=== PATIENT | male | born 1965 | race Caucasian/White ===

== ENCOUNTER 2022-05-09 14:48 | Emergency (ER) | payer MEDICARE ==
[2022-05-09] MEDS ORDERED: Meclizine HCl 25 MG TAB ONE (15:59)
[2022-05-09] MEDS ORDERED: Metoprolol Tartrate 5 MG/5 ML VIAL ONE ×3 (15:59→17:43)
[2022-05-09 16:02] LABS: #Basophils 0.1 thou/uL (0.0-0.2); #Eosinphils 0.1 thou/uL (0.0-0.7); #Lymphocytes 2.1 thou/uL (1.20-3.40); #Monocytes 0.7 thou/uL (0.11-0.59); #Neutrophils 6.1 thou/uL (1.40-6.50); %Basophils 0.8 % (0.0-1.0); %Eosinophils 1.6 % (0.0-10.0); %Monocytes 7.4 % (0.0-10.0); %Neutrophils 67.3 % (42.0-75.0); Hemoglobin 16.4 g/dL (14.0-18.0); Mean Corpuscular HGB CONC 30.4 g/dL (32.0-36.0); Mean Corpuscular Hemoglobin 24.5 pg (27.0-31.0); Mean Corpuscular Volume 80.5 fl (78.0-98.0); Mean Platelet Volume 6.9 fL (7.4-10.4); Platelet Count 327 10x3/uL (130-400); Red Blood Cell (RBC) Count 6.71 mill/uL (4.70-6.10); White Blood Cell (WBC) Count 9.1 10x3/uL (4.8-10.8)
[2022-05-09 16:05] LABS: Prothrombin Time 13.3 sec (12.0-14.7)
[2022-05-09 16:06] LABS: PTT 26.8 sec (22.9-36.1)
[2022-05-09 16:15] LABS: ALT (SGPT) 18 U/L (8-55); AST (SGOT) 20 U/L (5-34); Albumin 4.2 g/dL (3.5-5.0); Alkaline Phosphatase 102 U/L (40-110); Anion Gap 18 mmol/L (10-20); BUN (Urea Nitrogen) 13 mg/dL (8.4-25.7); Calc. Creatinine Clearance 0 mL/min (70-130); Calcium 10.8 mg/dL (7.8-10.44); Carbon Dioxide 24 mmol/L (22-29); Chloride 101 mmol/L (98-107); Estimated GFR 71; Globulin 4.1 g/dL (2.4-3.5); Glucose 80 mg/dL (70-105); Potassium 4.8 mmol/L (3.5-5.1); Protein, Total 8.3 g/dL (6.0-8.3); Sodium 138 mmol/L (136-145)
[2022-05-09] MEDS ORDERED: Lactated Ringer's 1,000 ML ONE (16:57)
[2022-05-09] MEDS ORDERED: Digoxin 0.5 MG/2 ML AMP ONE (18:48)
[2022-05-09] MEDS ORDERED: Aspirin Chewable 81 MG TAB ONE (18:48)
== END 2022-05-09 21:13 | disposition short-term general hospital (02) ==
LOC: MADERS 14:48
DX: I48.91 Unspecified atrial fibrillation (principal); R42 Dizziness and giddiness; E78.00 Pure hypercholesterolemia, unspecified; I10 Essential (primary) hypertension; Z79.82 Long term (current) use of aspirin; Z79.899 Other long term (current) drug therapy; F17.220 Nicotine dependence, chewing tobacco, uncomplicated
CPT/HCPCS: 36416; 70450; 71045; 80053; 83735; 84443; 84484; 85025; 85610; 85730; 93005; 94760; 96374; 96375; 96376; J1160; J7120